=== PATIENT | female | born 1945 | race Caucasian/White ===

== ENCOUNTER 2017-12-05 12:48 | Inpatient (IN) ==
[2017-12-05] MEDS ORDERED: ONDANSETRON 4 MG/2 ML VIAL IV PRN (13:18)
[2017-12-05 14:25] LABS: Basophils % 0.7 % (0.0-0.8); Eosinophils # 0.1 10*3/uL (0.0-0.87); Eosinophils % 2.2 % (0.00-10.9); Hematocrit 39.3 VOL% (35.7-47.0); Hemoglobin 12.7 GM/DL (12.0-16.0); Immature Granulocytes % 0.2 %; Immature Granulocytes Absolute 0.01 #; Lymphocytes # 1.9 10*3/uL (1.4-4.0); Lymphocytes % 45.1 % (21.3-54.2); Mean Corpuscular HGB Conc 32.3 GM/DL (32-36); Mean Corpuscular Hemoglobin 30 PG (27-34); Mean Corpuscular Volume 93.3 FL (87-102); Mean Platelet Volume 9.2 FL (9.6-12.0); Monocytes # 0.4 10*3/uL (0.11-0.8); Monocytes % 9.3 % (1.7-12.7); Neutrophils # 1.7 10*3/uL (1.4-7.4); Neutrophils % 42.5 % (38.7-73.9); Platelet Count 240 T/CUMM (130-400); Red Blood Count 4.21 MC/CUMM (3.8-5.5); Red Cell Distribution Width 13.3 % (9.3-17.3); White Blood Count 4.1 T/CUMM (4-12)
[2017-12-05 14:38] LABS: Osmolality,Calculated 278.3 MOS/KG (273-304); Potassium 2.9 MMOL/L (3.5-5.1)
[2017-12-05 14:44] LABS: Alanine Aminotransferase 14 U/L (13-56); Albumin 3.5 G/DL (3.4-5.0); Alkaline Phosphatase 130 U/L (45-117); Aspartate Amino Transferase 16 U/L (0-37); Bilirubin,Direct < 0.100 MG/DL (0.0-0.20); Bilirubin,Indirect 0.3 MG/DL (0.0-1.0); Total Protein 7.2 G/DL (6.4-8.3)
[2017-12-05 14:59] LABS: Band Neutrophils 1 % (0-10); Eosinophils 4 % (0-10); Hypochromasia 1+; Lymphocytes 41 % (20-55); Ovalocytes Slight; Platelet Estimate Adequate; Segmented Neutrophils 50 % (50-85); Total Cells Counted 100
[2017-12-05] MEDS: SODIUM CHLOR 0.9% KCL 40 MEQ 40 MEQ/1,000 ML BAG IV SCH (15:08)
[2017-12-05 16:59] LABS: Apearance,Urine Slightly Hazy (Clear); Bacteria,Urine Occasional /HPF (Few); Bilirubin,Urine Negative (Negative); Blood, Urine Small mg/dL (Negative); Glucose,Urine (UA) Negative (Negative); Ketones,Urine Negative (Negative); Mucus,Urine Occasional /LPF (Occasional); Nitrite,Urine Negative (Negative); Protein,Urine Negative; RBC,Urine 1 /HPF (0-4); Squamous Epithelial Cell,Urine Few /HPF (0-10); Urine Color Yellow (Yellow); Urine Specific Gravity 1.003 (1.001-1.035); Urine Urobilinogen < 2.0 EU/DL (0.2-1.0); WBC,Urine 6 /HPF (0-6)
[2017-12-05] MEDS: clonazePAM 0.5 MG TABLET PO SCH ×2 (18:16→20:41)
[2017-12-05] MEDS: traMADol 50 MG TABLET PO PRN (18:16)
[2017-12-05] MEDS: DONEPEZIL 10 MG TABLET PO SCH (20:41)
[2017-12-05] MEDS: traZODone 50 MG TABLET PO SCH (20:41)
[2017-12-05] MEDS: ESCITALOPRAM 10 MG TABLET PO SCH (20:41)
[2017-12-05] MEDS: PRIMIDONE 50 MG TABLET PO SCH (20:41)
[2017-12-05] MEDS: lamoTRIgine 100 MG TABLET PO SCH (20:48)
[2017-12-05] MEDS: TERBINAFINE 250 MG TABLET PO SCH (21:20)
[2017-12-06] MEDS: traMADol 50 MG TABLET PO PRN ×3 (00:57→19:15)
[2017-12-06] MEDS: SODIUM CHLOR 0.9% KCL 40 MEQ 40 MEQ/1,000 ML BAG IV SCH ×3 (01:02→22:30)
[2017-12-06 06:32] LABS: Osmolality,Calculated 292.1 MOS/KG (273-304); Potassium 3.7 MMOL/L (3.5-5.1)
[2017-12-06] MEDS: PANTOPRAZOLE 40 MG TABLET PO SCH (09:09)
[2017-12-06] MEDS: DONEPEZIL 10 MG TABLET PO SCH ×2 (09:09→20:08)
[2017-12-06] MEDS: clonazePAM 0.5 MG TABLET PO SCH ×4 (09:09→20:08)
[2017-12-06] MEDS: MEMANTINE 5 MG TABLET PO SCH (09:10)
[2017-12-06] MEDS: PRIMIDONE 50 MG TABLET PO SCH ×2 (09:10→20:08)
[2017-12-06] MEDS: lamoTRIgine 100 MG TABLET PO SCH ×3 (09:49→20:08)
[2017-12-06] MEDS: TERBINAFINE 250 MG TABLET PO SCH (09:49)
[2017-12-06] MEDS: ESCITALOPRAM 10 MG TABLET PO SCH (20:08)
[2017-12-06] MEDS: traZODone 50 MG TABLET PO SCH (20:09)
[2017-12-07 05:24] LABS: Basophils % 0.5 % (0.0-0.8); Eosinophils # 0.1 10*3/uL (0.0-0.87); Eosinophils % 3.2 % (0.00-10.9); Hematocrit 33.9 VOL% (35.7-47.0); Hemoglobin 10.4 GM/DL (12.0-16.0); Immature Granulocytes % 1.1 %; Immature Granulocytes Absolute 0.04 #; Lymphocytes # 1.6 10*3/uL (1.4-4.0); Lymphocytes % 42.9 % (21.3-54.2); Mean Corpuscular HGB Conc 30.7 GM/DL (32-36); Mean Corpuscular Hemoglobin 30 PG (27-34); Mean Corpuscular Volume 96.6 FL (87-102); Mean Platelet Volume 9.7 FL (9.6-12.0); Monocytes # 0.3 10*3/uL (0.11-0.8); Monocytes % 7.5 % (1.7-12.7); Neutrophils # 1.7 10*3/uL (1.4-7.4); Neutrophils % 44.8 % (38.7-73.9); Platelet Count 185 T/CUMM (130-400); Red Blood Count 3.51 MC/CUMM (3.8-5.5); Red Cell Distribution Width 13.8 % (9.3-17.3); White Blood Count 3.7 T/CUMM (4-12)
[2017-12-07 05:38] LABS: Calcium 8.1 MG/DL (8.5-10.1); Osmolality,Calculated 296.7 MOS/KG (273-304); Potassium 4.4 MMOL/L (3.5-5.1)
[2017-12-07] MEDS: SODIUM CHLOR 0.45% KCL 20 MEQ 20 MEQ/1,000 ML BAG IV SCH ×3 (09:07→21:06)
[2017-12-07] MEDS: traMADol 50 MG TABLET PO PRN ×2 (09:10→17:36)
[2017-12-07] MEDS: PRIMIDONE 50 MG TABLET PO SCH ×2 (09:11→20:55)
[2017-12-07] MEDS: clonazePAM 0.5 MG TABLET PO SCH ×4 (09:11→20:53)
[2017-12-07] MEDS: DONEPEZIL 10 MG TABLET PO SCH ×2 (09:11→20:52)
[2017-12-07] MEDS: lamoTRIgine 100 MG TABLET PO SCH ×2 (09:12→20:54)
[2017-12-07] MEDS: MEMANTINE 5 MG TABLET PO SCH (09:12)
[2017-12-07] MEDS: PANTOPRAZOLE 40 MG TABLET PO SCH (09:12)
[2017-12-07] MEDS ORDERED: LOPERAMIDE 0.2 MG/ML 30 ML/BOTTLE PO ONE (11:13)
[2017-12-07] MEDS ORDERED: LOPERAMIDE 0.2 MG/ML 30 ML/BOTTLE PO PRN (11:13)
[2017-12-07] MEDS: traZODone 50 MG TABLET PO SCH (20:53)
[2017-12-07] MEDS: ESCITALOPRAM 10 MG TABLET PO SCH (20:54)
[2017-12-07] MEDS: ACETAMINOPHEN 325 MG TABLET PO PRN (20:56)
[2017-12-08 05:35] LABS: Calcium 7.4 MG/DL (8.5-10.1); Osmolality,Calculated 288.3 MOS/KG (273-304); Potassium 4.3 MMOL/L (3.5-5.1)
[2017-12-08] MEDS: SODIUM CHLOR 0.45% KCL 20 MEQ 20 MEQ/1,000 ML BAG IV SCH ×2 (07:25→19:06)
[2017-12-08] MEDS ORDERED: MAGNESIUM SULF RIDER 2 GM in PREMIX 1 EACH IV ONE (09:39)
[2017-12-08] MEDS: lamoTRIgine 100 MG TABLET PO SCH ×2 (10:15→20:52)
[2017-12-08] MEDS: traMADol 50 MG TABLET PO PRN (10:15)
[2017-12-08] MEDS: clonazePAM 0.5 MG TABLET PO SCH ×4 (10:15→20:51)
[2017-12-08] MEDS: DONEPEZIL 10 MG TABLET PO SCH ×2 (10:15→20:51)
[2017-12-08] MEDS: PRIMIDONE 50 MG TABLET PO SCH ×2 (10:16→20:52)
[2017-12-08] MEDS: MEMANTINE 5 MG TABLET PO SCH (10:17)
[2017-12-08] MEDS: PANTOPRAZOLE 40 MG TABLET PO SCH (10:17)
[2017-12-08] MEDS ORDERED: CIPROFLOXACIN INJ 400 MG in PREMIX 1 EACH IV SCH (13:00)
[2017-12-08] MEDS: cefTRIAXone 1,000 MG in SYRINGE 1 EACH IV SCH (13:40)
[2017-12-08] MEDS: ACETAMINOPHEN 325 MG TABLET PO PRN (14:35)
[2017-12-08] MEDS ORDERED: BISACODYL 5 MG TABLET PO ONE (15:05)
[2017-12-08] MEDS ORDERED: POLYETHYLENE GLYCOL 3350/ELECTROLYTES 4,000 ML BOTTLE PO ONE (18:00)
[2017-12-08] MEDS: ESCITALOPRAM 10 MG TABLET PO SCH (20:52)
[2017-12-08] MEDS: traZODone 50 MG TABLET PO SCH (20:52)
[2017-12-09] MEDS: SODIUM CHLOR 0.45% KCL 20 MEQ 20 MEQ/1,000 ML BAG IV SCH ×2 (03:32→10:34)
[2017-12-09 06:30] LABS: Calcium 8.7 MG/DL (8.5-10.1); Osmolality,Calculated 285.6 MOS/KG (273-304)
[2017-12-09] MEDS: clonazePAM 0.5 MG TABLET PO SCH ×4 (09:01→21:24)
[2017-12-09] MEDS: cefTRIAXone 1,000 MG in SYRINGE 1 EACH IV SCH (10:35)
[2017-12-09] MEDS: MEMANTINE 5 MG TABLET PO SCH (10:35)
[2017-12-09] MEDS: PRIMIDONE 50 MG TABLET PO SCH ×2 (10:35→21:23)
[2017-12-09] MEDS: LACTOBACILLUS ACIDOPHILUS/BULGARICUS CAPLET PO SCH (10:35)
[2017-12-09] MEDS: PANTOPRAZOLE 40 MG TABLET PO SCH (10:35)
[2017-12-09] MEDS: DONEPEZIL 10 MG TABLET PO SCH ×2 (10:36→21:23)
[2017-12-09] MEDS: lamoTRIgine 100 MG TABLET PO SCH ×2 (10:36→21:23)
[2017-12-09 13:30] LABS: Basophils % 0.4 % (0.0-0.8); Eosinophils # 0.1 10*3/uL (0.0-0.87); Eosinophils % 2.2 % (0.00-10.9); Hematocrit 36.8 VOL% (35.7-47.0); Hemoglobin 11.3 GM/DL (12.0-16.0); Immature Granulocytes % 1.1 %; Immature Granulocytes Absolute 0.06 #; Lymphocytes # 1.3 10*3/uL (1.4-4.0); Lymphocytes % 23.2 % (21.3-54.2); Mean Corpuscular HGB Conc 30.7 GM/DL (32-36); Mean Corpuscular Hemoglobin 30 PG (27-34); Mean Corpuscular Volume 98.9 FL (87-102); Mean Platelet Volume 9.6 FL (9.6-12.0); Monocytes # 0.3 10*3/uL (0.11-0.8); Monocytes % 4.9 % (1.7-12.7); Neutrophils # 3.8 10*3/uL (1.4-7.4); Neutrophils % 68.2 % (38.7-73.9); Platelet Count 200 T/CUMM (130-400); Red Blood Count 3.72 MC/CUMM (3.8-5.5); Red Cell Distribution Width 13.5 % (9.3-17.3)
[2017-12-09 13:32] LABS: White Blood Count 5.5 T/CUMM (4-12)
[2017-12-09 13:45] LABS: Calcium 8.1 MG/DL (8.5-10.1); Osmolality,Calculated 286.6 MOS/KG (273-304); Potassium 3.9 MMOL/L (3.5-5.1)
[2017-12-09] MEDS ORDERED: MAGNESIUM SULF RIDER 4 GM in PREMIX 1 EACH IV PRN (16:09)
[2017-12-09] MEDS ORDERED: MAGNESIUM SULF RIDER 2 GM in PREMIX 1 EACH IV PRN (16:09)
[2017-12-09] MEDS: ESCITALOPRAM 10 MG TABLET PO SCH (21:23)
[2017-12-09] MEDS: traZODone 50 MG TABLET PO SCH (21:23)
[2017-12-10] MEDS: SODIUM CHLOR 0.45% KCL 20 MEQ 20 MEQ/1,000 ML BAG IV SCH ×3 (00:10→21:24)
[2017-12-10 05:14] LABS: Calcium 8.3 MG/DL (8.5-10.1); Osmolality,Calculated 287.4 MOS/KG (273-304)
[2017-12-10] MEDS: PANTOPRAZOLE 40 MG TABLET PO SCH (09:07)
[2017-12-10] MEDS: MEMANTINE 5 MG TABLET PO SCH (09:08)
[2017-12-10] MEDS: lamoTRIgine 100 MG TABLET PO SCH ×2 (09:08→21:26)
[2017-12-10] MEDS: PRIMIDONE 50 MG TABLET PO SCH ×2 (09:08→21:26)
[2017-12-10] MEDS: cefTRIAXone 1,000 MG in SYRINGE 1 EACH IV SCH (09:09)
[2017-12-10] MEDS: DONEPEZIL 10 MG TABLET PO SCH ×2 (09:09→21:25)
[2017-12-10] MEDS: clonazePAM 0.5 MG TABLET PO SCH ×4 (09:09→21:26)
[2017-12-10] MEDS: LACTOBACILLUS ACIDOPHILUS/BULGARICUS CAPLET PO SCH (09:09)
[2017-12-10] MEDS ORDERED: LIDOCAINE 100 MG/5 ML SYRINGE ONE (12:35)
[2017-12-10] MEDS ORDERED: PROPOFOL 200 MG/20 ML VIAL IV ONE (12:35)
[2017-12-10] MEDS: CHOLESTYRAMINE 4 GM PACK PO SCH ×2 (13:02→21:26)
[2017-12-10] MEDS: BUDESONIDE 3 MG CAPSULE PO SCH (17:30)
[2017-12-10] MEDS: ESCITALOPRAM 10 MG TABLET PO SCH (21:25)
[2017-12-10] MEDS: traZODone 50 MG TABLET PO SCH (21:26)
[2017-12-11] MEDS: traMADol 50 MG TABLET PO PRN (01:55)
[2017-12-11] MEDS: SODIUM CHLOR 0.45% KCL 20 MEQ 20 MEQ/1,000 ML BAG IV SCH (07:51)
[2017-12-11] MEDS: clonazePAM 0.5 MG TABLET PO SCH ×2 (09:31→12:50)
[2017-12-11] MEDS: DONEPEZIL 10 MG TABLET PO SCH (09:31)
[2017-12-11] MEDS: PANTOPRAZOLE 40 MG TABLET PO SCH (09:31)
[2017-12-11] MEDS: cefTRIAXone 1,000 MG in SYRINGE 1 EACH IV SCH (09:31)
[2017-12-11] MEDS: BUDESONIDE 3 MG CAPSULE PO SCH (09:31)
[2017-12-11] MEDS: lamoTRIgine 100 MG TABLET PO SCH (09:32)
[2017-12-11] MEDS: PRIMIDONE 50 MG TABLET PO SCH (09:32)
[2017-12-11] MEDS: MEMANTINE 5 MG TABLET PO SCH (09:32)
[2017-12-11] MEDS: LACTOBACILLUS ACIDOPHILUS/BULGARICUS CAPLET PO SCH (09:32)
[2017-12-11] MEDS: CHOLESTYRAMINE 4 GM PACK PO SCH (09:33)
[2017-12-11 11:49] VITALS: BP 121/72
[2017-12-11 13:06] LABS: Basophils % 0.3 % (0.0-0.8); Eosinophils # 0.2 10*3/uL (0.0-0.87); Eosinophils % 2.6 % (0.00-10.9); Hematocrit 34.2 VOL% (35.7-47.0); Hemoglobin 10.6 GM/DL (12.0-16.0); Immature Granulocytes % 1.1 %; Immature Granulocytes Absolute 0.07 #; Lymphocytes # 1.4 10*3/uL (1.4-4.0); Lymphocytes % 23.1 % (21.3-54.2); Mean Corpuscular Hemoglobin 30 PG (27-34); Mean Corpuscular Volume 95.5 FL (87-102); Mean Platelet Volume 9.5 FL (9.6-12.0); Monocytes # 0.4 10*3/uL (0.11-0.8); Neutrophils # 4.1 10*3/uL (1.4-7.4); Neutrophils % 66.9 % (38.7-73.9); Platelet Count 177 T/CUMM (130-400); Red Blood Count 3.58 MC/CUMM (3.8-5.5); Red Cell Distribution Width 13.7 % (9.3-17.3); White Blood Count 6.2 T/CUMM (4-12)
[2017-12-11 13:26] LABS: Calcium 7.9 MG/DL (8.5-10.1); Osmolality,Calculated 282.8 MOS/KG (273-304); Potassium 4.7 MMOL/L (3.5-5.1)
== END 2017-12-11 15:15 | disposition home or self-care (01) | DRG 392 ==
LOC: N.2E
PROVIDERS: ADMIT Family Medicine; ATTEND Family Medicine

== ENCOUNTER 2018-02-13 12:55 | Inpatient (IN) ==
[2018-02-13] MEDS ORDERED: POTASSIUM CHLORIDE 20 MEQ PACK PO STA (15:22)
[2018-02-13 16:07] LABS: Basophils % 0.2 % (0.0-0.8); Eosinophils # 0.1 10*3/uL (0.0-0.87); Eosinophils % 1.1 % (0.00-10.9); Hematocrit 34.4 VOL% (35.7-47.0); Hemoglobin 10.9 GM/DL (12.0-16.0); Immature Granulocytes % 0.3 %; Immature Granulocytes Absolute 0.02 #; Lymphocytes # 1.5 10*3/uL (1.4-4.0); Lymphocytes % 24.1 % (21.3-54.2); Mean Corpuscular HGB Conc 31.7 GM/DL (32-36); Mean Corpuscular Hemoglobin 32 PG (27-34); Mean Corpuscular Volume 100.6 FL (87-102); Monocytes # 0.4 10*3/uL (0.11-0.8); Monocytes % 6.9 % (1.7-12.7); Neutrophils # 4.2 10*3/uL (1.4-7.4); Neutrophils % 67.4 % (38.7-73.9); Platelet Count 238 T/CUMM (130-400); Red Blood Count 3.42 MC/CUMM (3.8-5.5); Red Cell Distribution Width 16.2 % (9.3-17.3); White Blood Count 6.3 T/CUMM (4-12)
[2018-02-13 16:26] LABS: Alanine Aminotransferase 11 U/L (13-56); Albumin 3.1 G/DL (3.4-5.0); Alkaline Phosphatase 129 U/L (45-117); Aspartate Amino Transferase 13 U/L (0-37); Bilirubin,Total < 0.39 MG/DL (0.2-1.0); Blood Urea Nitrogen 12 MG/DL (7-18); Calcium 8.6 MG/DL (8.5-10.1); Glucose 90 MG/DL (74-106); Osmolality,Calculated 282.1 MOS/KG (273-304); Sodium 142 MMOL/L (136-145)
[2018-02-13 16:34] LABS: Potassium 1.9 MMOL/L (3.5-5.1)
[2018-02-13] MEDS: SODIUM CHLOR 0.9% KCL 40 MEQ 40 MEQ/1,000 ML BAG IV SCH (16:38)
[2018-02-13] MEDS ORDERED: ACETAMINOPHEN 325 MG TABLET PO PRN (17:12)
[2018-02-13] MEDS ORDERED: ONDANSETRON 4 MG/2 ML VIAL IV PRN (17:12)
[2018-02-13] MEDS ORDERED: IBUPROFEN 600 MG TABLET PO PRN (17:12)
[2018-02-13] MEDS ORDERED: CHOLESTYRAMINE 4 GM PACK PO PRN (19:56)
[2018-02-13] MEDS ORDERED: LOPERAMIDE 2 MG CAPSULE PO PRN (19:56)
[2018-02-13] MEDS: PRIMIDONE 50 MG TABLET PO SCH (20:53)
[2018-02-13] MEDS: lamoTRIgine 100 MG TABLET PO SCH (20:53)
[2018-02-13] MEDS: traZODone 50 MG TABLET PO SCH (20:54)
[2018-02-13] MEDS: clonazePAM 0.5 MG TABLET PO SCH (20:54)
[2018-02-13] MEDS: DOCUSATE SODIUM 100 MG CAPSULE PO SCH (20:54)
[2018-02-13] MEDS: ESCITALOPRAM 10 MG TABLET PO SCH (20:54)
[2018-02-13] MEDS: DONEPEZIL 10 MG TABLET PO SCH (20:54)
[2018-02-13] MEDS: SODIUM CHLOR 0.9% KCL 20 MEQ 20 MEQ/1,000 ML BAG IV SCH (20:55)
[2018-02-13] MEDS ORDERED: PNEUMOCOCCAL VACCINE (13 VALENT) 0.5 ML SYRINGE IM ONE (21:46)
[2018-02-13] MEDS ORDERED: POTASSIUM CHLORIDE 20 MEQ TABLET PO ONE (23:27)
[2018-02-13] MEDS ORDERED: POTASSIUM CHLORIDE 20 MEQ/15 ML UDCUP PO ONE (23:27)
[2018-02-14 04:38] LABS: Basophils % 0.2 % (0.0-0.8); Eosinophils # 0.1 10*3/uL (0.0-0.87); Eosinophils % 1.5 % (0.00-10.9); Hematocrit 30.5 VOL% (35.7-47.0); Hemoglobin 9.5 GM/DL (12.0-16.0); Immature Granulocytes % 0.2 %; Immature Granulocytes Absolute 0.01 #; Lymphocytes # 1.6 10*3/uL (1.4-4.0); Lymphocytes % 31.1 % (21.3-54.2); Mean Corpuscular HGB Conc 31.1 GM/DL (32-36); Mean Corpuscular Hemoglobin 32 PG (27-34); Mean Platelet Volume 9.3 FL (9.6-12.0); Monocytes # 0.3 10*3/uL (0.11-0.8); Monocytes % 6.5 % (1.7-12.7); Neutrophils # 3.2 10*3/uL (1.4-7.4); Neutrophils % 60.5 % (38.7-73.9); Platelet Count 218 T/CUMM (130-400); Red Blood Count 2.99 MC/CUMM (3.8-5.5); Red Cell Distribution Width 16.4 % (9.3-17.3); White Blood Count 5.3 T/CUMM (4-12)
[2018-02-14 05:02] LABS: Albumin 2.5 G/DL (3.4-5.0); Bilirubin,Total 0.5 MG/DL (0.2-1.0); Calcium 7.6 MG/DL (8.5-10.1); Osmolality,Calculated 297.9 MOS/KG (273-304); Potassium 2.9 MMOL/L (3.5-5.1); Total Protein 5.8 G/DL (6.4-8.3)
[2018-02-14] MEDS ORDERED: POTASSIUM CHLORIDE RIDER 20 MEQ in PREMIX 1 EACH IV ONE (05:48)
[2018-02-14] MEDS: SODIUM CHLOR 0.9% KCL 40 MEQ 40 MEQ/1,000 ML BAG IV SCH ×3 (05:50→11:25)
[2018-02-14] MEDS: lamoTRIgine 100 MG TABLET PO SCH ×2 (08:22→21:45)
[2018-02-14] MEDS: MEMANTINE 5 MG TABLET PO SCH (08:22)
[2018-02-14] MEDS: DONEPEZIL 10 MG TABLET PO SCH ×2 (08:22→21:45)
[2018-02-14] MEDS: PRIMIDONE 50 MG TABLET PO SCH ×2 (08:23→21:46)
[2018-02-14] MEDS: DOCUSATE SODIUM 100 MG CAPSULE PO SCH ×2 (08:23→21:45)
[2018-02-14] MEDS: clonazePAM 0.5 MG TABLET PO SCH ×4 (08:23→21:45)
[2018-02-14] MEDS: PANTOPRAZOLE 40 MG TABLET PO SCH (08:23)
[2018-02-14] MEDS: SODIUM CHLOR 0.9% KCL 20 MEQ 20 MEQ/1,000 ML BAG IV SCH (08:24)
[2018-02-14] MEDS ORDERED: ALPRAZolam 0.5 MG TABLET PO PRN (10:55)
[2018-02-14] MEDS: POTASSIUM CHLORIDE INJ 40 MEQ in SODIUM CHLORIDE 0.45% 1,000 ML IV SCH ×2 (11:54→23:20)
[2018-02-14 16:10] LABS: Calcium 8.2 MG/DL (8.5-10.1); Osmolality,Calculated 292.1 MOS/KG (273-304)
[2018-02-14] MEDS: POTASSIUM CHLORIDE 20 MEQ TABLET PO SCH (16:30)
[2018-02-14] MEDS: ESCITALOPRAM 10 MG TABLET PO SCH (21:45)
[2018-02-14] MEDS: traZODone 50 MG TABLET PO SCH (21:45)
[2018-02-15 08:29] LABS: Calcium 8.3 MG/DL (8.5-10.1); Osmolality,Calculated 295.1 MOS/KG (273-304)
[2018-02-15] MEDS: DOCUSATE SODIUM 100 MG CAPSULE PO SCH ×2 (08:37→21:46)
[2018-02-15] MEDS: clonazePAM 0.5 MG TABLET PO SCH ×4 (08:38→21:44)
[2018-02-15] MEDS: PANTOPRAZOLE 40 MG TABLET PO SCH (08:38)
[2018-02-15] MEDS: DONEPEZIL 10 MG TABLET PO SCH ×2 (08:38→21:44)
[2018-02-15] MEDS: POTASSIUM CHLORIDE 20 MEQ TABLET PO SCH ×2 (08:38→21:45)
[2018-02-15] MEDS: MEMANTINE 5 MG TABLET PO SCH (08:38)
[2018-02-15] MEDS: PRIMIDONE 50 MG TABLET PO SCH ×2 (08:38→21:45)
[2018-02-15] MEDS: POTASSIUM CHLORIDE INJ 40 MEQ in SODIUM CHLORIDE 0.45% 1,000 ML IV SCH ×2 (08:40→19:10)
[2018-02-15] MEDS: lamoTRIgine 100 MG TABLET PO SCH ×2 (09:47→21:46)
[2018-02-15] MEDS ORDERED: MAGNESIUM SULF RIDER 2 GM in PREMIX 1 EACH IV ONE (12:00)
[2018-02-15] MEDS: MAGNESIUM OXIDE 400 MG TABLET PO SCH ×2 (12:17→21:45)
[2018-02-15 16:14] LABS: Osmolality,Calculated 287.6 MOS/KG (273-304); Potassium 3.5 MMOL/L (3.5-5.1)
[2018-02-15] MEDS: ESCITALOPRAM 10 MG TABLET PO SCH (21:44)
[2018-02-15] MEDS: traZODone 50 MG TABLET PO SCH (21:46)
[2018-02-16] MEDS: POTASSIUM CHLORIDE INJ 40 MEQ in SODIUM CHLORIDE 0.45% 1,000 ML IV SCH ×2 (05:22→16:15)
[2018-02-16] MEDS: MAGNESIUM OXIDE 400 MG TABLET PO SCH ×2 (09:09→20:45)
[2018-02-16] MEDS: DONEPEZIL 10 MG TABLET PO SCH ×2 (09:09→20:46)
[2018-02-16] MEDS: MEMANTINE 5 MG TABLET PO SCH (09:10)
[2018-02-16] MEDS: lamoTRIgine 100 MG TABLET PO SCH ×2 (09:10→20:45)
[2018-02-16] MEDS: PRIMIDONE 50 MG TABLET PO SCH ×2 (09:10→20:45)
[2018-02-16] MEDS: clonazePAM 0.5 MG TABLET PO SCH ×4 (09:10→20:45)
[2018-02-16] MEDS: PANTOPRAZOLE 40 MG TABLET PO SCH (09:10)
[2018-02-16] MEDS: POTASSIUM CHLORIDE 20 MEQ TABLET PO SCH ×2 (09:10→20:46)
[2018-02-16] MEDS: DOCUSATE SODIUM 100 MG CAPSULE PO SCH ×2 (09:11→20:46)
[2018-02-16 10:47] LABS: Basophils % 0.2 % (0.0-0.8); Eosinophils # 0.1 10*3/uL (0.0-0.87); Eosinophils % 1.5 % (0.00-10.9); Hematocrit 33.3 VOL% (35.7-47.0); Hemoglobin 9.9 GM/DL (12.0-16.0); Immature Granulocytes % 0.4 %; Immature Granulocytes Absolute 0.02 #; Lymphocytes # 1.4 10*3/uL (1.4-4.0); Lymphocytes % 26.1 % (21.3-54.2); Mean Corpuscular HGB Conc 29.7 GM/DL (32-36); Mean Corpuscular Hemoglobin 33 PG (27-34); Mean Corpuscular Volume 109.5 FL (87-102); Mean Platelet Volume 9.6 FL (9.6-12.0); Monocytes # 0.3 10*3/uL (0.11-0.8); Monocytes % 4.7 % (1.7-12.7); Neutrophils # 3.6 10*3/uL (1.4-7.4); Neutrophils % 67.1 % (38.7-73.9); Platelet Count 202 T/CUMM (130-400); Red Blood Count 3.04 MC/CUMM (3.8-5.5); Red Cell Distribution Width 17.1 % (9.3-17.3); White Blood Count 5.3 T/CUMM (4-12)
[2018-02-16 11:04] LABS: Calcium 8.3 MG/DL (8.5-10.1); Osmolality,Calculated 287.4 MOS/KG (273-304); Potassium 4.3 MMOL/L (3.5-5.1)
[2018-02-16] MEDS: ESCITALOPRAM 10 MG TABLET PO SCH (20:45)
[2018-02-16] MEDS: traZODone 50 MG TABLET PO SCH (20:46)
[2018-02-17] MEDS: POTASSIUM CHLORIDE INJ 40 MEQ in SODIUM CHLORIDE 0.45% 1,000 ML IV SCH ×5 (02:25→23:33)
[2018-02-17] MEDS ORDERED: PROPOFOL 200 MG/20 ML VIAL IV ONE (09:18)
[2018-02-17] MEDS ORDERED: fentaNYL 100 MCG/2 ML VIAL ONE (09:18)
[2018-02-17] MEDS ORDERED: SEVOFLURANE 1 UNIT/15 MINUTE INH ONE (09:18)
[2018-02-17] MEDS ORDERED: ePHEDrine 50 MG/ML AMP ONE (09:19)
[2018-02-17] MEDS ORDERED: KETOROLAC 30 MG/1 ML VIAL ONE (09:19)
[2018-02-17] MEDS ORDERED: ONDANSETRON 4 MG/2 ML VIAL ONE ×2 (09:19→10:01)
[2018-02-17] MEDS ORDERED: LACTATED RINGERS 1,000 ML IV ONE (09:19)
[2018-02-17] MEDS ORDERED: ONDANSETRON 4 MG/2 ML VIAL IV PRN (09:59)
[2018-02-17] MEDS ORDERED: HYDROmorphone 2 MG/1 ML VIAL IV PRN (09:59)
[2018-02-17] MEDS ORDERED: HYDROmorphone 2 MG/1 ML VIAL ONE (10:01)
[2018-02-17] MEDS: MAGNESIUM OXIDE 400 MG TABLET PO SCH ×2 (12:34→22:07)
[2018-02-17] MEDS: POTASSIUM CHLORIDE 20 MEQ TABLET PO SCH ×2 (12:34→22:11)
[2018-02-17] MEDS: DONEPEZIL 10 MG TABLET PO SCH ×2 (12:35→22:07)
[2018-02-17] MEDS: PRIMIDONE 50 MG TABLET PO SCH ×2 (12:35→22:08)
[2018-02-17] MEDS: clonazePAM 0.5 MG TABLET PO SCH ×4 (12:35→22:08)
[2018-02-17] MEDS: DOCUSATE SODIUM 100 MG CAPSULE PO SCH ×2 (12:35→22:11)
[2018-02-17] MEDS: PANTOPRAZOLE 40 MG TABLET PO SCH (12:35)
[2018-02-17] MEDS: MEMANTINE 5 MG TABLET PO SCH (12:35)
[2018-02-17] MEDS: lamoTRIgine 100 MG TABLET PO SCH ×2 (12:36→22:10)
[2018-02-17] MEDS: ESCITALOPRAM 10 MG TABLET PO SCH (22:10)
[2018-02-17] MEDS: traZODone 50 MG TABLET PO SCH (22:15)
[2018-02-18 05:11] LABS: Basophils % 0.3 % (0.0-0.8); Eosinophils # 0.2 10*3/uL (0.0-0.87); Eosinophils % 2.3 % (0.00-10.9); Hematocrit 32.3 VOL% (35.7-47.0); Hemoglobin 9.9 GM/DL (12.0-16.0); Immature Granulocytes % 0.5 %; Immature Granulocytes Absolute 0.03 #; Lymphocytes # 1.7 10*3/uL (1.4-4.0); Lymphocytes % 26.1 % (21.3-54.2); Mean Corpuscular HGB Conc 30.7 GM/DL (32-36); Mean Corpuscular Hemoglobin 33 PG (27-34); Mean Corpuscular Volume 106.3 FL (87-102); Mean Platelet Volume 10.3 FL (9.6-12.0); Monocytes # 0.3 10*3/uL (0.11-0.8); Monocytes % 5.2 % (1.7-12.7); Neutrophils # 4.3 10*3/uL (1.4-7.4); Neutrophils % 65.6 % (38.7-73.9); Platelet Count 198 T/CUMM (130-400); Red Blood Count 3.04 MC/CUMM (3.8-5.5); Red Cell Distribution Width 16.7 % (9.3-17.3); White Blood Count 6.6 T/CUMM (4-12)
[2018-02-18 05:52] LABS: Calcium 8.4 MG/DL (8.5-10.1)
[2018-02-18 05:54] LABS: Osmolality,Calculated 277.3 MOS/KG (273-304)
[2018-02-18 05:56] LABS: Potassium 8.8 MMOL/L (3.5-5.1)
[2018-02-18] MEDS ORDERED: SODIUM POLYSTYRENE SULFATE 15 GM/60 ML BOTTLE PO STA ×2 (06:15→14:18)
[2018-02-18] MEDS: DONEPEZIL 10 MG TABLET PO SCH ×2 (08:57→21:04)
[2018-02-18] MEDS: DOCUSATE SODIUM 100 MG CAPSULE PO SCH ×3 (08:57→21:31)
[2018-02-18] MEDS: PANTOPRAZOLE 40 MG TABLET PO SCH (08:57)
[2018-02-18] MEDS: MEMANTINE 5 MG TABLET PO SCH (08:58)
[2018-02-18] MEDS: clonazePAM 0.5 MG TABLET PO SCH ×4 (08:58→21:03)
[2018-02-18] MEDS: lamoTRIgine 100 MG TABLET PO SCH ×2 (08:58→21:05)
[2018-02-18] MEDS: PRIMIDONE 50 MG TABLET PO SCH ×2 (08:58→21:05)
[2018-02-18] MEDS: MAGNESIUM OXIDE 400 MG TABLET PO SCH ×2 (08:59→21:04)
[2018-02-18] MEDS: ESCITALOPRAM 10 MG TABLET PO SCH (21:03)
[2018-02-18] MEDS: traZODone 50 MG TABLET PO SCH (21:05)
[2018-02-19 04:28] LABS: Basophils % 0.4 % (0.0-0.8); Eosinophils # 0.1 10*3/uL (0.0-0.87); Eosinophils % 1.9 % (0.00-10.9); Hematocrit 32.1 VOL% (35.7-47.0); Hemoglobin 9.9 GM/DL (12.0-16.0); Immature Granulocytes % 0.2 %; Immature Granulocytes Absolute 0.01 #; Lymphocytes # 1.8 10*3/uL (1.4-4.0); Lymphocytes % 37.8 % (21.3-54.2); Mean Corpuscular HGB Conc 30.8 GM/DL (32-36); Mean Corpuscular Hemoglobin 32 PG (27-34); Mean Corpuscular Volume 104.6 FL (87-102); Mean Platelet Volume 9.9 FL (9.6-12.0); Monocytes # 0.2 10*3/uL (0.11-0.8); Monocytes % 4.8 % (1.7-12.7); Neutrophils # 2.7 10*3/uL (1.4-7.4); Neutrophils % 54.9 % (38.7-73.9); Platelet Count 200 T/CUMM (130-400); Red Blood Count 3.07 MC/CUMM (3.8-5.5); Red Cell Distribution Width 16.3 % (9.3-17.3); White Blood Count 4.8 T/CUMM (4-12)
[2018-02-19 04:42] LABS: Calcium 8.7 MG/DL (8.5-10.1); Potassium 5.3 MMOL/L (3.5-5.1)
[2018-02-19] MEDS: PANTOPRAZOLE 40 MG TABLET PO SCH (10:01)
[2018-02-19] MEDS: lamoTRIgine 100 MG TABLET PO SCH ×2 (10:01→21:58)
[2018-02-19] MEDS: clonazePAM 0.5 MG TABLET PO SCH ×4 (10:01→21:58)
[2018-02-19] MEDS: DOCUSATE SODIUM 100 MG CAPSULE PO SCH ×3 (10:02→21:58)
[2018-02-19] MEDS: MAGNESIUM OXIDE 400 MG TABLET PO SCH ×2 (10:02→21:57)
[2018-02-19] MEDS: PRIMIDONE 50 MG TABLET PO SCH ×2 (10:02→21:57)
[2018-02-19] MEDS: MEMANTINE 5 MG TABLET PO SCH (10:02)
[2018-02-19] MEDS: DONEPEZIL 10 MG TABLET PO SCH ×2 (10:02→21:57)
[2018-02-19] MEDS: traZODone 50 MG TABLET PO SCH (21:58)
[2018-02-19] MEDS: ESCITALOPRAM 10 MG TABLET PO SCH (21:58)
[2018-02-20 04:24] LABS: Osmolality,Calculated 283.1 MOS/KG (273-304); Potassium 4.6 MMOL/L (3.5-5.1)
[2018-02-20] MEDS: PANTOPRAZOLE 40 MG TABLET PO SCH (08:36)
[2018-02-20] MEDS: MEMANTINE 5 MG TABLET PO SCH (08:36)
[2018-02-20] MEDS: lamoTRIgine 100 MG TABLET PO SCH (08:36)
[2018-02-20] MEDS: DONEPEZIL 10 MG TABLET PO SCH (08:36)
[2018-02-20] MEDS: MAGNESIUM OXIDE 400 MG TABLET PO SCH (08:36)
[2018-02-20] MEDS: PRIMIDONE 50 MG TABLET PO SCH (08:36)
[2018-02-20] MEDS: clonazePAM 0.5 MG TABLET PO SCH ×2 (08:36→12:39)
[2018-02-20] MEDS: DOCUSATE SODIUM 100 MG CAPSULE PO SCH (08:37)
[2018-02-20 15:58] VITALS: BP 97/55
== END 2018-02-20 17:04 | disposition home health service (06) | DRG 988 ==
LOC: N.ED 12:55 → N.EDINP 17:12 → N.CC 19:15 → N.TELES 02-14 15:18
PROVIDERS: ADMIT Family Medicine; ATTEND Family Medicine

== ENCOUNTER 2018-11-19 14:49 | Observation (INO) ==
[2018-11-19] MEDS ORDERED: DOCUSATE SODIUM 100 MG CAPSULE PO PRN (15:23)
[2018-11-19] MEDS ORDERED: ACETAMINOPHEN 325 MG TABLET PO PRN (15:23)
[2018-11-19] MEDS ORDERED: ONDANSETRON 4 MG/2 ML VIAL IV PRN (15:23)
[2018-11-19] MEDS ORDERED: POTASSIUM CHLORIDE INJ 20 MEQ in SODIUM CHLORIDE 0.9% 1,000 ML IV SCH (15:30)
[2018-11-19] MEDS ORDERED: INFLUENZA VIRUS VACCINE 0.5 ML SYRINGE IM ONE (15:37)
[2018-11-19] MEDS: SODIUM CHLOR 0.9% KCL 20 MEQ 20 MEQ/1,000 ML BAG IV SCH (17:24)
[2018-11-19] MEDS: cefTRIAXone 1,000 MG in SYRINGE 1 EACH IV SCH (17:24)
[2018-11-19 17:45] LABS: Basophils % 0.2 % (0.0-0.8); Eosinophils % 0.2 % (0.00-10.9); Hematocrit 34.5 VOL% (35.7-47.0); Hemoglobin 10.7 GM/DL (12.0-16.0); Immature Granulocytes % 0.4 %; Immature Granulocytes Absolute 0.02 #; Lymphocytes # 1.1 10*3/uL (1.4-4.0); Mean Corpuscular Volume 95.3 FL (87-102); Monocytes % 8.2 % (1.7-12.7); Platelet Count 138 T/CUMM (130-400); Red Blood Count 3.62 MC/CUMM (3.8-5.5); Red Cell Distribution Width 13.7 % (9.3-17.3); White Blood Count 4.7 T/CUMM (4-12)
[2018-11-19] MEDS ORDERED: CHOLESTYRAMINE 4 GM PACK PO PRN (19:44)
[2018-11-19] MEDS: traZODone 50 MG TABLET PO SCH (20:48)
[2018-11-19] MEDS: clonazePAM 0.5 MG TABLET PO SCH (20:48)
[2018-11-19] MEDS: ESCITALOPRAM 10 MG TABLET PO SCH (20:48)
[2018-11-19] MEDS: DONEPEZIL 10 MG TABLET PO SCH (20:48)
[2018-11-19] MEDS: PRIMIDONE 50 MG TABLET PO SCH (20:49)
[2018-11-19 20:52] LABS: Alanine Aminotransferase 12 U/L (13-56); Albumin 2.8 G/DL (3.4-5.0); Alkaline Phosphatase 137 U/L (45-117); Aspartate Amino Transferase 14 U/L (0-37); Bilirubin,Total < 0.39 MG/DL (0.2-1.0); Blood Urea Nitrogen 11 MG/DL (7-18); Calcium 8.7 MG/DL (8.5-10.1); Estimated Glom Filtration Rate 36 ML/MIN; Glucose 128 MG/DL (74-106); Osmolality,Calculated 279.4 MOS/KG (273-304)
[2018-11-19] MEDS ORDERED: ENOXAPARIN 30 MG/0.3 ML SYRINGE SUBCUT SCH (21:00)
[2018-11-19] MEDS: lamoTRIgine 100 MG TABLET PO SCH (22:52)
[2018-11-20] MEDS: SODIUM CHLOR 0.9% KCL 20 MEQ 20 MEQ/1,000 ML BAG IV SCH ×2 (03:45→20:25)
[2018-11-20] MEDS: lamoTRIgine 100 MG TABLET PO SCH ×2 (09:36→20:26)
[2018-11-20] MEDS: PRIMIDONE 50 MG TABLET PO SCH ×2 (09:37→20:26)
[2018-11-20] MEDS: POTASSIUM CHLORIDE 20 MEQ TABLET PO SCH (09:37)
[2018-11-20] MEDS: PANTOPRAZOLE 40 MG TABLET PO SCH (09:37)
[2018-11-20] MEDS: clonazePAM 0.5 MG TABLET PO SCH ×4 (09:37→20:27)
[2018-11-20] MEDS: CHOLECALCIFEROL 5,000 UNIT TABLET PO SCH (09:37)
[2018-11-20] MEDS: MEMANTINE 5 MG TABLET PO SCH (09:37)
[2018-11-20] MEDS: cefTRIAXone 1,000 MG in SYRINGE 1 EACH IV SCH (09:38)
[2018-11-20 15:35] LABS: Apearance,Urine CLEAR (Clear); Bacteria,Urine Occasional /HPF (Few); Bilirubin,Urine Negative (Negative); Blood, Urine Moderate mg/dL (Negative); Glucose,Urine (UA) Negative (Negative); Ketones,Urine Negative (Negative); Mucus,Urine Occasional /LPF (Occasional); Nitrite,Urine Negative (Negative); Protein,Urine Negative; RBC,Urine 2 /HPF (0-4); Urine Color Straw (Yellow); Urine Specific Gravity 1.004 (1.001-1.035); Urine Urobilinogen < 2.0 EU/DL (0.2-1.0); WBC,Urine 10 /HPF (0-6)
[2018-11-20] MEDS: traZODone 50 MG TABLET PO SCH (20:26)
[2018-11-20] MEDS: ESCITALOPRAM 10 MG TABLET PO SCH (20:27)
[2018-11-20] MEDS: DONEPEZIL 10 MG TABLET PO SCH (20:27)
[2018-11-20] MEDS ORDERED: ENOXAPARIN 40 MG/0.4 ML SYRINGE SUBCUT SCH (21:00)
[2018-11-20] MEDS ORDERED: BUDESONIDE 3 MG CAPSULE PO SCH (21:00)
[2018-11-21] MEDS: SODIUM CHLOR 0.9% KCL 20 MEQ 20 MEQ/1,000 ML BAG IV SCH (06:36)
[2018-11-21 06:57] LABS: Basophils % 0.3 % (0.0-0.8); Eosinophils # 0.1 10*3/uL (0.0-0.87); Eosinophils % 2.1 % (0.00-10.9); Hematocrit 32.7 VOL% (35.7-47.0); Immature Granulocytes % 0.3 %; Immature Granulocytes Absolute 0.01 #; Lymphocytes # 1.2 10*3/uL (1.4-4.0); Lymphocytes % 35.1 % (21.3-54.2); Mean Corpuscular HGB Conc 30.6 GM/DL (32-36); Mean Corpuscular Volume 96.7 FL (87-102); Mean Platelet Volume 10.1 FL (9.6-12.0); Monocytes % 7.1 % (1.7-12.7); Neutrophils % 55.1 % (38.7-73.9); Platelet Count 146 T/CUMM (130-400); Red Blood Count 3.38 MC/CUMM (3.8-5.5); Red Cell Distribution Width 13.8 % (9.3-17.3); White Blood Count 3.4 T/CUMM (4-12)
[2018-11-21 07:25] LABS: Eosinophils 2 % (0-10); Hypochromasia 1+; Lymphocytes 35 % (20-55); Platelet Estimate Normal; Segmented Neutrophils 56 % (50-85); Total Cells Counted 100
[2018-11-21 07:29] LABS: Albumin 2.4 G/DL (3.4-5.0); Bilirubin,Total 0.6 MG/DL (0.2-1.0); Osmolality,Calculated 292.1 MOS/KG (273-304); Total Protein 6.2 G/DL (6.4-8.3)
[2018-11-21 07:36] VITALS: BP 120/59
[2018-11-21] MEDS: clonazePAM 0.5 MG TABLET PO SCH (09:19)
[2018-11-21] MEDS: PRIMIDONE 50 MG TABLET PO SCH (09:19)
[2018-11-21] MEDS: lamoTRIgine 100 MG TABLET PO SCH (09:19)
[2018-11-21] MEDS: POTASSIUM CHLORIDE 20 MEQ TABLET PO SCH (09:20)
[2018-11-21] MEDS: cefTRIAXone 1,000 MG in SYRINGE 1 EACH IV SCH (09:20)
[2018-11-21] MEDS: MEMANTINE 5 MG TABLET PO SCH (09:20)
[2018-11-21] MEDS: CHOLECALCIFEROL 5,000 UNIT TABLET PO SCH (09:20)
[2018-11-21] MEDS: PANTOPRAZOLE 40 MG TABLET PO SCH (09:20)
== END 2018-11-21 11:48 ==
LOC: N.2E
PROVIDERS: ADMIT Family Medicine; ATTEND Family Medicine

== ENCOUNTER 2019-04-11 20:23 | Observation (INO) ==
[2019-04-11] MEDS ORDERED: PANTOPRAZOLE 40 MG VIAL IV STA (20:52)
[2019-04-11] MEDS ORDERED: ONDANSETRON 4 MG/2 ML VIAL IV STA (20:52)
[2019-04-11] MEDS ORDERED: SODIUM CHLORIDE 0.9% 500 ML IV STA (20:52)
[2019-04-11 21:43] LABS: Basophils % 0.3 % (0.0-0.8); Eosinophils # 0.1 10*3/uL (0.0-0.87); Eosinophils % 1.8 % (0.00-10.9); Hematocrit 33.7 VOL% (35.7-47.0); Hemoglobin 10.9 GM/DL (12.0-16.0); Immature Granulocytes % 0.3 %; Immature Granulocytes Absolute 0.02 #; Lymphocytes # 1.4 10*3/uL (1.4-4.0); Lymphocytes % 20.4 % (21.3-54.2); Mean Corpuscular HGB Conc 32.3 GM/DL (32-36); Mean Corpuscular Volume 99.7 FL (87-102); Mean Platelet Volume 9.8 FL (9.6-12.0); Monocytes % 4.3 % (1.7-12.7); Neutrophils % 72.9 % (38.7-73.9); Platelet Count 175 T/CUMM (130-400); Red Blood Count 3.38 MC/CUMM (3.8-5.5); Red Cell Distribution Width 13.2 % (9.3-17.3); White Blood Count 6.8 T/CUMM (4-12)
[2019-04-11 21:54] LABS: PT Patient Result 10.7 SECS (9.6-12.2); Partial Thromboplastin Time 30.4 SECS (20.8-36.0)
[2019-04-11 22:03] LABS: Alanine Aminotransferase 11 U/L (13-56); Albumin 3.1 G/DL (3.4-5.0); Alkaline Phosphatase 78 U/L (45-117); Amylase 44 U/L (25-115); Aspartate Amino Transferase 14 U/L (0-37); Bilirubin,Total < 0.39 MG/DL (0.2-1.0); Blood Urea Nitrogen 8 MG/DL (7-18); Calcium 8.9 MG/DL (8.5-10.1); Estimated Glom Filtration Rate 38 ML/MIN; Glucose 84 MG/DL (74-106); Osmolality,Calculated 279.1 MOS/KG (273-304); Total Protein 6.4 G/DL (6.4-8.3); Troponin I < 0.015 NG/ML (0.00-0.045)
[2019-04-11] MEDS ORDERED: POTASSIUM BICARB EFFERVESCENT 25 MEQ TABLET PO ONE (22:07)
[2019-04-11] MEDS ORDERED: ACETAMINOPHEN 500 MG TABLET PO PRN (22:27)
[2019-04-11] MEDS ORDERED: ONDANSETRON 4 MG/2 ML VIAL IV PRN (22:27)
[2019-04-12 00:13] LABS: Apearance,Urine CLEAR (Clear); Bilirubin,Urine Negative (Negative); Blood, Urine Negative (Negative); Glucose,Urine (UA) Negative (Negative); Ketones,Urine Negative (Negative); Nitrite,Urine Negative (Negative); Protein,Urine Negative; RBC,Urine <1 /HPF (0-4); Urine Color Straw (Yellow); Urine Specific Gravity 1.006 (1.001-1.035); Urine Urobilinogen < 2.0 EU/DL (0.2-1.0); WBC,Urine <1 /HPF (0-6)
[2019-04-12] MEDS ORDERED: CHOLESTYRAMINE 4 GM PACK PO PRN (00:58)
[2019-04-12] MEDS: SODIUM CHLORIDE 0.45% 1,000 ML IV SCH ×2 (00:59→11:52)
[2019-04-12 05:49] LABS: Basophils % 0.3 % (0.0-0.8); Eosinophils # 0.1 10*3/uL (0.0-0.87); Eosinophils % 2.3 % (0.00-10.9); Hematocrit 32.6 VOL% (35.7-47.0); Hemoglobin 10.2 GM/DL (12.0-16.0); Immature Granulocytes % 0.3 %; Immature Granulocytes Absolute 0.01 #; Lymphocytes # 1.1 10*3/uL (1.4-4.0); Mean Corpuscular HGB Conc 31.3 GM/DL (32-36); Mean Corpuscular Volume 102.2 FL (87-102); Mean Platelet Volume 9.9 FL (9.6-12.0); Monocytes % 5.4 % (1.7-12.7); Neutrophils % 62.7 % (38.7-73.9); Platelet Count 157 T/CUMM (130-400); Red Blood Count 3.19 MC/CUMM (3.8-5.5); White Blood Count 3.9 T/CUMM (4-12)
[2019-04-12 06:04] LABS: Calcium 8.3 MG/DL (8.5-10.1)
[2019-04-12 06:05] LABS: Osmolality,Calculated 280.1 MOS/KG (273-304)
[2019-04-12] MEDS: clonazePAM 0.5 MG TABLET PO SCH ×4 (08:35→21:35)
[2019-04-12] MEDS: PANTOPRAZOLE 40 MG TABLET PO SCH (08:35)
[2019-04-12] MEDS: lamoTRIgine 100 MG TABLET PO SCH ×2 (08:36→21:35)
[2019-04-12] MEDS: FOLIC ACID 1 MG TABLET PO SCH ×2 (08:43→21:35)
[2019-04-12] MEDS: MEMANTINE 5 MG TABLET PO SCH (08:43)
[2019-04-12] MEDS: PRIMIDONE 50 MG TABLET PO SCH ×2 (08:43→21:34)
[2019-04-12] MEDS: BUDESONIDE 3 MG CAPSULE PO SCH (08:43)
[2019-04-12] MEDS: DONEPEZIL 10 MG TABLET PO SCH ×2 (08:43→21:35)
[2019-04-12] MEDS: POTASSIUM CHLORIDE 20 MEQ TABLET PO SCH ×2 (08:43→21:34)
[2019-04-12] MEDS: POLYETHYLENE GLYCOL POWDER 17 GM PACK PO SCH ×2 (11:51→21:36)
[2019-04-12] MEDS ORDERED: ESCITALOPRAM 10 MG TABLET PO SCH (21:00)
[2019-04-12] MEDS ORDERED: traZODone 50 MG TABLET PO SCH (21:00)
[2019-04-13 06:15] LABS: Basophils % 0.3 % (0.0-0.8); Eosinophils # 0.1 10*3/uL (0.0-0.87); Hematocrit 31.8 VOL% (35.7-47.0); Immature Granulocytes % 0.3 %; Immature Granulocytes Absolute 0.01 #; Lymphocytes # 1.4 10*3/uL (1.4-4.0); Lymphocytes % 38.9 % (21.3-54.2); Mean Corpuscular HGB Conc 31.4 GM/DL (32-36); Mean Corpuscular Volume 101.3 FL (87-102); Mean Platelet Volume 9.5 FL (9.6-12.0); Monocytes % 8.9 % (1.7-12.7); Neutrophils % 49.6 % (38.7-73.9); Platelet Count 165 T/CUMM (130-400); Red Blood Count 3.14 MC/CUMM (3.8-5.5); Red Cell Distribution Width 12.8 % (9.3-17.3); White Blood Count 3.5 T/CUMM (4-12)
[2019-04-13 06:44] LABS: Alanine Aminotransferase < 9 U/L (13-56); Albumin 2.8 G/DL (3.4-5.0); Alkaline Phosphatase 84 U/L (45-117); Aspartate Amino Transferase 11 U/L (0-37); Blood Urea Nitrogen 10 MG/DL (7-18); Calcium 8.7 MG/DL (8.5-10.1); Estimated Glom Filtration Rate 46 ML/MIN; Glucose 79 MG/DL (74-106); Osmolality,Calculated 280.1 MOS/KG (273-304); Total Protein 5.7 G/DL (6.4-8.3)
[2019-04-13] MEDS: clonazePAM 0.5 MG TABLET PO SCH ×2 (09:59→12:36)
[2019-04-13] MEDS: POTASSIUM CHLORIDE 20 MEQ TABLET PO SCH (09:59)
[2019-04-13] MEDS: FOLIC ACID 1 MG TABLET PO SCH (10:00)
[2019-04-13] MEDS: BUDESONIDE 3 MG CAPSULE PO SCH (10:00)
[2019-04-13] MEDS: MEMANTINE 5 MG TABLET PO SCH (10:00)
[2019-04-13] MEDS: lamoTRIgine 100 MG TABLET PO SCH (10:00)
[2019-04-13] MEDS: DONEPEZIL 10 MG TABLET PO SCH (10:00)
[2019-04-13] MEDS: PANTOPRAZOLE 40 MG TABLET PO SCH (10:00)
[2019-04-13] MEDS: PRIMIDONE 50 MG TABLET PO SCH (10:00)
[2019-04-13] MEDS: POLYETHYLENE GLYCOL POWDER 17 GM PACK PO SCH (10:01)
[2019-04-13 11:27] VITALS: BP 123/94
[2019-04-13] MEDS: SODIUM CHLORIDE 0.45% 1,000 ML IV SCH (12:11)
== END 2019-04-13 13:45 | disposition home or self-care (01) ==
LOC: N.EDINP 20:23 → N.ED 20:23 → N.2E 22:51
PROVIDERS: ADMIT Family Medicine; ATTEND Family Medicine